=== PATIENT | male | born 1945 | race African-American/Black ===

== ENCOUNTER 2018-08-24 11:25 | Outpatient (CLI) | payer MEDICARE, BC ==
--- NOTE | 2018-08-24 12:38 | RAD ---
2 views right hip. HISTORY: Right hip pain. AP and frog leg views right hip obtained. No evidence of acute fractures, subluxations or bony lesion seen. IMPRESSION: Unremarkable 2 views right hip.
--- NOTE | 2018-08-24 12:39 | RAD ---
2 views right knee. HISTORY: Bilateral knee osteoarthritis and pain. AP and lateral views right knee obtained. Vascular calcifications seen in the popliteal artery. No evidence of right knee fractures, subluxations or bony lesions seen. IMPRESSION: Unremarkable 2 views right knee.
--- NOTE | 2018-08-24 12:52 | RAD ---
Left knee 2 views: HISTORY: Bilateral primary osteoarthritis of knee FINDINGS: Mild degenerative changes are present. No fracture dislocation or bony destruction is ident ified.
== END 2018-08-24 11:26 | disposition home or self-care (01) ==
LOC: BICRAD 11:25
PROVIDERS: ATTEND Internal Medicine Rheumatology
DX: M17.0 Bilateral primary osteoarthritis of knee (principal); M25.551 Pain in right hip

== ENCOUNTER 2018-09-01 14:05 | Outpatient (CLI) | payer MEDICARE, BC ==
--- NOTE | 2018-09-01 14:24 | RAD ---
EXAM: Right shoulder 3 views: HISTORY: Right shoulder pain COMPARISON: None FINDINGS: Degenerative changes. No acute fracture or dislocation or other significant acute osseous abnormality. IMPRESSION: No significant acute process.
== END 2018-09-01 14:06 | disposition home or self-care (01) ==
LOC: BICRAD 14:05
PROVIDERS: ATTEND Internal Medicine Rheumatology
DX: M25.511 Pain in right shoulder (principal)

== ENCOUNTER 2020-01-19 15:23 | Observation (INO) | payer MEDICARE, BC, OTHER ==
[2020-01-19 16:26] LABS: #Eosinphils 0.1 thou/uL (0.0-0.7); #Lymphocytes 1.6 thou/uL (1.20-3.40); #Neutrophils 4.6 thou/uL (1.40-6.50); %Basophils 0.2 % (0.0-1.0); %Eosinophils 1.6 % (0.0-10.0); %Lymphocytes 21.7 % (21.0-51.0); %Monocytes 13.6 % (0.0-10.0); %Neutrophils 62.9 % (42.0-75.0); Hemoglobin 15.1 g/dL (14.0-18.0); Mean Corpuscular HGB CONC 32.7 g/dL (32.0-36.0); Mean Corpuscular Hemoglobin 33.4 pg (27.0-31.0); Mean Platelet Volume 8.5 fL (7.4-10.4); Platelet Count 134 thou/uL (130-400); RBC Distribution Width 12.3 % (11.5-14.5); Red Blood Cell (RBC) Count 4.53 mill/uL (4.70-6.10); White Blood Cell (WBC) Count 7.3 thou/uL (4.8-10.8)
--- NOTE | 2020-01-19 16:34 | RAD ---
Portable frontal chest radiograph: 01/19/2020 COMPARISON: 06/16/2010 HISTORY: Shortness of breath, altered mental status, low blood pressure FINDINGS: There is atherosclerotic obscuration of the aortic arch. Incompletely imaged cervical spine fusion hardware present. There is mild prominence of the tortuous descending thoracic aorta. No lobar consolidation or alveolar edema. Mild increased linear density noted in the left lung base which may signify volume loss or minimal in filtrate. IMPRESSION: Mild linear density in the left base. No focal consolidation or alveolar edema.
[2020-01-19 16:49] LABS: ALT (SGPT) 12 U/L (8-55); AST (SGOT) 14 U/L (5-34); Albumin 3.7 g/dL (3.4-4.8); Alkaline Phosphatase 66 U/L (40-110); Anion Gap 15 mmol/L (10-20); BUN (Urea Nitrogen) 15 mg/dL (8.4-25.7); Bilirubin, Total 0.6 mg/dL (0.2-1.2); CK (CPK) 114 U/L (30-200); Calc. Creatinine Clearance 0 mL/min (70-130); Calcium 8.7 mg/dL (7.8-10.44); Carbon Dioxide 21 mmol/L (23-31); Chloride 109 mmol/L (98-107); Estimated GFR-MDRD 54; Globulin 2.4 g/dL (2.4-3.5); Glucose 129 mg/dL (83-110); Magnesium 2.2 mg/dL (1.6-2.6); Protein, Total 6.1 g/dL (5.8-8.1); Sodium 141 mmol/L (136-145)
[2020-01-19 17:48] LABS: Bilirubin Negative (Negative); Blood, Urine Negative (Negative); Clarity Clear (Clear); Glucose, Urine (Dipstick) Normal (Negative); Ketone, Urine Negative (Negative); Leukocyte 25 Leu/uL (Negative); Nitrite Negative (Negative); Protein, Urine (Dipstick) 10 mg/dL (Neg-Trace); RBC/HPF 0-3 HPF (0-3); Specific Gravity, Urine 1.011 (1.002-1.036); Squamous Epithelial 0-3 HPF (0-3); Urobilinogen Normal mg/dL (Less than 2)
[2020-01-19 17:54] LABS: Bacteria/HPF 1+ HPF (None Seen)
[2020-01-19] MEDS ORDERED: cefTRIAXone\\ROCEPHIN 1 GM VIAL ONE (18:09)
[2020-01-19] MEDS ORDERED: Vancomycin 1 GM/200 ML BAG ONE (18:54)
--- NOTE | 2020-01-19 20:04 | CT ---
CT OF THE BRAIN WITHOUT CONTRAST: 01/19/20 HISTORY: Hypertension and altered mental status. COMPARISON: 06/18/10. TECHNIQUE: Multiple contiguous axial images were obtained in a CT of the brain without contrast. FINDINGS: Mild bifrontal atrophy is seen. There is no evidence of hydrocephalus, intracranial hemorrhage or ext ra-axial fluid collections. No large confluent infarction is seen. The calvarium and overlying soft tissues are unremarkable. The visualized paranasal sinuses and masto id air cells are well aerated. IMPRESSION: No evidence of acute intracranial abnormality. POS: EAA
[2020-01-19] MEDS ORDERED: Acetaminophen 325 MG TAB PO PRN (20:33)
[2020-01-19] MEDS ORDERED: Sodium Chloride 0.9% 1,000 ML IV SCH (20:45)
[2020-01-19 21:28] LABS: Troponin I Less than 0.010 ng/mL (< 0.028)
--- NOTE | 2020-01-19 21:43 | PDOC.EVN ---
Event Note - Event Note Event Note: [id number] HP
[2020-01-19 23:19] VITALS: BMI 25.0
[2020-01-20 00:18] LABS: Troponin I Less than 0.010 ng/mL (< 0.028)
--- NOTE | 2020-01-20 00:33 | HP ---
CHIEF COMPLAINT: Near syncopal episode. HISTORY OF PRESENT ILLNESS: Mr. Hargrove is a 74-year-old male with past medical history of hypertension, arthritis, who was brought to the emergency room by EMS due to low blood pressure and after a near syncopal episode. The patient was sitting on the couch and started to get really sweaty, generalized weakness, and tunnel vision. He told his , who called the EMS. Upon arrival, blood pressure was 58/20. The patient was given 1700 mL of fluids. The patient denies loss of consciousness, fall, chest pain, shortness of breath, or headache. He denies diarrhea. The patient stated that he was walking outside and with limited amount of fluid intake, he felt dehydrated. He notes that it was very hot and he started to get really tired and went outside to eat and sit down. He drank only a limited amount of water today. Workup in the emergency room, the patient appeared dehydrated, the patient was found to be in acute kidney injury with elevated creatinine. He had also ? UTI. The patient is being admitted to the hospital for further management. PAST MEDICAL HISTORY: 1. Hypertension. 2. Hyperlipidemia. 3. Arthritis. PAST SURGICAL HISTORY: Reviewed and not pertinent. FAMILY HISTORY: Reviewed and noncontributory. SOCIAL HISTORY: The patient drinks a glass of vodka a day. He currently uses tobacco. ALLERGIES: NO KNOWN ALLERGIES. HOME MEDICATIONS: Please see home medication reconciliation form for updated medications. REVIEW OF SYSTEMS: Review of 14 systems negative, except what is mentioned in history of present illness. PHYSICAL EXAMINATION: VITAL SIGNS: Blood pressure 105/64, respiratory rate is 18, temperature is 97.9, oxygen saturation 99% on room air, pulse is 60. HEAD AND NECK: Normocephalic, atraumatic. Neck is supple. Mucous membranes dry. CHEST: Fair bilateral air entry. ABDOMEN: Soft, nontender. Bowel sounds present. HEART: S1, S2. Regular. ABDOMEN: Soft, nontender. Bowel sounds present. NEUROLOGIC: Awake, alert, oriented x3. No focal deficits. PSYCH: Unable to assess. EXTREMITIES: No clubbing, no cyanosis. LABORATORY DATA: WBC 7.3, hemoglobin 15.1, platelets 134. Chemistry; sodium 141, potassium 4.0, BUN is 16, creatinine 1.52, glucose 129. Lactic acid 1.9. Troponin 0.013. Chest x-ray: Mild linear density, no definite consolidation or edema. CT of brain: No acute finding. ASSESSMENT: 1. Near syncope. 2. Hypotension, resolved. 3. Dehydration. 4. Acute kidney injury. 5. Hyperlipidemia. 6. History of hypertension. 7. Urinary tract infection? PLAN: 1. Admit. 2. Telemetry monitoring. 3. Orthostatic vital signs. 4. IV fluids. 5. Serial troponins. 6. Continue with antibiotic for now. 7. Reconcile home medications. 8. DVT prophylaxis as appropriate. 9. Expected length of stay, 1 midnight if patient stable and shows significant clinical improvement. Job ID: [id number]
[2020-01-20 05:11] LABS: #Eosinphils 0.2 thou/uL (0.0-0.7); #Lymphocytes 1.8 thou/uL (1.20-3.40); #Monocytes 0.7 thou/uL (0.11-0.59); #Neutrophils 4.7 thou/uL (1.40-6.50); %Basophils 0.5 % (0.0-1.0); %Eosinophils 3.1 % (0.0-10.0); %Lymphocytes 24.2 % (21.0-51.0); %Monocytes 9.9 % (0.0-10.0); %Neutrophils 62.2 % (42.0-75.0); Hemoglobin 14.6 g/dL (14.0-18.0); Mean Corpuscular Hemoglobin 34.8 pg (27.0-31.0); Mean Platelet Volume 8.4 fL (7.4-10.4); Platelet Count 145 thou/uL (130-400); RBC Distribution Width 12.3 % (11.5-14.5); Red Blood Cell (RBC) Count 4.18 mill/uL (4.70-6.10); White Blood Cell (WBC) Count 7.5 thou/uL (4.8-10.8)
[2020-01-20 05:43] LABS: Anion Gap 13 mmol/L (10-20); BUN (Urea Nitrogen) 12 mg/dL (8.4-25.7); Calc. Creatinine Clearance 53 mL/min (70-130); Calcium 8.7 mg/dL (7.8-10.44); Carbon Dioxide 23 mmol/L (23-31); Chloride 110 mmol/L (98-107); Estimated GFR-MDRD 73; Glucose 93 mg/dL (83-110); Potassium 3.9 mmol/L (3.5-5.1); Sodium 142 mmol/L (136-145)
[2020-01-20] MEDS ORDERED: Enoxaparin Sodium 30 MG/0.3 ML SYRINGE SC SCH (09:00)
[2020-01-20] MEDS ORDERED: Polyethylene Glycol 3350 17 GM Packet PO PRN (10:35)
[2020-01-20 11:02] LABS: SARS-CoV-2 MS2 Positive; SARS-CoV-2 N Gene Negative; SARS-CoV-2 S Gene Negative; SARS-CoV-2 by NAA Not Detected (NotDetected); SARS-CoV-2 orf1ab Negative
[2020-01-20] MEDS ORDERED: Senokot S 8.6-50 MG TAB PO SCH ×2 (11:15→21:00)
[2020-01-20 12:17] VITALS: BP 114/61; TEMP 97.9
[2020-01-20] MEDS ORDERED: cefTRIAXone\\ROCEPHIN 1 GM in Sodium Chloride 0.9% 100 ML IVPB SCH (20:00)
--- NOTE | 2020-01-21 02:13 | DIS ---
DATE OF ADMISSION: 01/19/2020 DATE OF DISCHARGE: 01/20/2020 DISCHARGE DIAGNOSES: 1. Hypotension, likely due to volume depletion, improved. 2. Dehydration. 3. Near syncope, secondary to #1 and #2. 4. Acute renal failure, improved. 5. Urinary tract infection, suspected. CONSULTATIONS: None. PERTINENT LABORATORY AND X-RAY FINDINGS: Creatinine ranged between 1.17 to 1.52. Estimated GFR ranged between 54 to 73. Lactic acid level 1.9. LFTs within normal limits. Magnesium level 2.2. Troponin I negative x3. BNP 11. CBC showed an MCV of 102. Blood cultures x2 dated 01/19/2020 showed no growth to date. Portable chest x-ray dated 01/19/2020 showed no acute cardiopulmonary process. CT of the brain dated 01/19/2020 showed no acute intracranial process. HOSPITAL COURSE: The patient was observed on the telemetry unit after initially presenting status post near syncopal episode. The patient with dehydration and acute kidney injury, likely due to volume depletion and poor oral intake. The patient was initially treated with IV fluids and monitored for clinical response. The patient was also treated for mild urinary tract infection with IV Rocephin and overall remained clinically stable. I have examined the patient at the time of discharge and discussed followup instructions. The patient was encouraged to increase free water intake at home and hold lisinopril for approximately 24 hours. The patient verbalized understanding and agreement, ready for discharge on 01/20/2020. DISCHARGE MEDICATIONS: 1. Lisinopril 20 mg one tablet p.o. daily, hold until 01/21/2020. 2. Atenolol 50 mg p.o. daily. 3. MiraLAX 17 g p.o. daily. 4. Gabapentin 600 mg p.o. daily. 5. Macrobid 100 mg p.o. b.i.d. x3 days. 6. Viagra 100 mg p.o. daily p.r.n. FOLLOWUP: The patient may follow up with Dr. Harinder Linares. CONDITION ON DISCHARGE: Stable. ACTIVITY: Ad fei. DIET: Heart healthy. CODE STATUS: Full. DISPOSITION: To home, 01/20/2020. Job ID: [id number]
[2020-01-21] MEDS ORDERED: Gabapentin 300 MG CAP PO SCH (09:00)
[2020-01-21] MEDS ORDERED: Non-Formulary Item 1 EACH (Gabapentin [Neurontin] 600 MG Tablet) PO SCH (09:00)
== END 2020-01-20 14:40 | disposition home or self-care (01) ==
LOC: ERS 15:23 → 2SE 18:59
PROVIDERS: ADMIT Internal Medicine; ATTEND Internal Medicine
DX: I95.9 Hypotension, unspecified (principal); E86.0 Dehydration; N17.9 Acute kidney failure, unspecified; E78.5 Hyperlipidemia, unspecified; I10 Essential (primary) hypertension; M19.90 Unspecified osteoarthritis, unspecified site; F17.200 Nicotine dependence, unspecified, uncomplicated; Z79.899 Other long term (current) drug therapy; Z20.828 Contact with and (suspected) exposure to other viral communicable diseases
CPT/HCPCS: 70450; 71045; 80048; 80053; 82550; 83605; 83735; 83880; 84484 ×2; 85025 ×2; 87040; 87086; 93005; 94760; 96365; 96367; 99285; U0003; 36415; 81003; 81015; 87635; 96361; 96372; G0378; J0696; J1650; J3370

== ENCOUNTER 2020-09-02 13:38 | Inpatient (IN) | payer MEDICARE, BC ==
[~2020-09-02 13:38] MED LIST: Iopamidol-370 76% 500 ML 1 ML ONE
[2020-09-02 14:04] LABS: #Eosinphils 0.2 thou/uL (0.0-0.7); #Lymphocytes 2.5 thou/uL (1.20-3.40); #Neutrophils 4.2 thou/uL (1.40-6.50); %Basophils 0.2 % (0.0-1.0); %Lymphocytes 31.6 % (21.0-51.0); %Monocytes 12.9 % (0.0-10.0); %Neutrophils 53.3 % (42.0-75.0); Hemoglobin 13.9 g/dL (14.0-18.0); Mean Corpuscular HGB CONC 33.4 g/dL (32.0-36.0); Mean Corpuscular Hemoglobin 34.3 pg (27.0-31.0); Mean Platelet Volume 8.5 fL (7.4-10.4); Platelet Count 157 thou/uL (130-400); RBC Distribution Width 12.4 % (11.5-14.5); Red Blood Cell (RBC) Count 4.06 mill/uL (4.70-6.10); White Blood Cell (WBC) Count 7.8 thou/uL (4.8-10.8)
[2020-09-02 14:25] LABS: ALT (SGPT) 13 U/L (8-55); AST (SGOT) 14 U/L (5-34); Acetaminophen Less than 6.0 mcg/mL (10.0-30.0); Albumin 3.7 g/dL (3.4-4.8); Alcohol Less than 10 mg/dL (Less than 10); Alkaline Phosphatase 53 U/L (40-110); Anion Gap 15 mmol/L (10-20); BUN (Urea Nitrogen) 13 mg/dL (8.4-25.7); Bilirubin, Total 0.7 mg/dL (0.2-1.2); CK (CPK) 65 U/L (30-200); Calc. Creatinine Clearance 0 mL/min (70-130); Calcium 9.6 mg/dL (7.8-10.44); Carbon Dioxide 23 mmol/L (23-31); Chloride 105 mmol/L (98-107); Globulin 2.6 g/dL (2.4-3.5); Glucose 110 mg/dL (83-110); Lipase 30 U/L (8-78); Potassium 4.5 mmol/L (3.5-5.1); Protein, Total 6.3 g/dL (5.8-8.1); Salicylate Less than 8.0 mg/dL (15.0-30.0); Sodium 138 mmol/L (136-145)
[2020-09-02] MEDS ORDERED: levETIRAcetam 500 MG/100 ML PREMIX BAG ONE (15:49)
[2020-09-02 17:24] LABS: Lactic Acid 3.2 mmol/L (0.5-2.2)
[2020-09-02] MEDS ORDERED: Senokot S 8.6-50 MG TAB PO PRN (17:25)
[2020-09-02] MEDS ORDERED: Acetaminophen 325 MG TAB PO PRN (17:25)
[2020-09-02] MEDS ORDERED: Sodium Chloride 0.9% 1,000 ML IV SCH (17:30)
[2020-09-02 17:36] VITALS: BMI 25.7
[2020-09-02] MEDS ORDERED: Lorazepam 2 MG/ML VIAL SLOW IVP PRN (17:40)
[2020-09-02 18:07] LABS: Free T4 (Free Thyroxine) 0.85 ng/dL (0.70-1.48)
[2020-09-02 18:47] LABS: Bilirubin Negative (Negative); Blood, Urine Negative (Negative); Clarity Clear (Clear); Glucose, Urine (Dipstick) Negative (Negative); Ketone, Urine Negative (Negative); Leukocyte Negative (Negative); Nitrite Negative (Negative); Protein, Urine (Dipstick) Negative (Neg-Trace); Urobilinogen 0.2 mg/dL (Less than 2)
[2020-09-02 18:48] LABS: Specific Gravity, Urine 1.031 (1.002-1.036)
[2020-09-02 18:49] LABS: Bacteria/HPF None Seen HPF (None Seen); RBC/HPF 0-3 HPF (0-3); Squamous Epithelial 0-3 HPF (0-3); WBC/HPF 0-3 HPF (0-3)
[2020-09-02] MEDS: Famotidine 20 MG TAB PO SCH (20:43)
[2020-09-02] MEDS: Nicotine 14 MG PATCH TD SCH (20:43)
[2020-09-03 05:11] LABS: #Eosinphils 0.4 thou/uL (0.0-0.7); #Lymphocytes 2.2 thou/uL (1.20-3.40); #Monocytes 1.1 thou/uL (0.11-0.59); %Basophils 0.6 % (0.0-1.0); %Eosinophils 4.9 % (0.0-10.0); %Lymphocytes 28.2 % (21.0-51.0); %Monocytes 13.9 % (0.0-10.0); %Neutrophils 52.3 % (42.0-75.0); Hemoglobin 14.4 g/dL (14.0-18.0); Mean Corpuscular HGB CONC 33.3 g/dL (32.0-36.0); Mean Corpuscular Hemoglobin 34.7 pg (27.0-31.0); Mean Platelet Volume 8.8 fL (7.4-10.4); Platelet Count 153 thou/uL (130-400); RBC Distribution Width 12.4 % (11.5-14.5); Red Blood Cell (RBC) Count 4.15 mill/uL (4.70-6.10); White Blood Cell (WBC) Count 7.6 thou/uL (4.8-10.8)
[2020-09-03 05:33] LABS: Lactic Acid 1.7 mmol/L (0.5-2.2)
[2020-09-03 05:38] LABS: ALT (SGPT) 13 U/L (8-55); AST (SGOT) 13 U/L (5-34); Albumin 3.6 g/dL (3.4-4.8); Alkaline Phosphatase 52 U/L (40-110); Anion Gap 11 mmol/L (10-20); BUN (Urea Nitrogen) 14 mg/dL (8.4-25.7); Bilirubin, Total 0.5 mg/dL (0.2-1.2); Calc. Creatinine Clearance 56 mL/min (70-130); Calcium 9.4 mg/dL (7.8-10.44); Carbon Dioxide 25 mmol/L (23-31); Cardiac Risk 3.4 (Less than 4.5); Chloride 110 mmol/L (98-107); Cholesterol 132 mg/dl (< 200 Desired); Globulin 2.6 g/dL (2.4-3.5); Glucose 93 mg/dL (83-110); HDL Cholesterol 39 mg/dL (>60 Neg Risk); LDL Cholesterol, Calculated 74 mg/dL; Magnesium 2.1 mg/dL (1.6-2.6); Potassium 4.8 mmol/L (3.5-5.1); Protein, Total 6.2 g/dL (5.8-8.1); Sodium 141 mmol/L (136-145); Triglycerides 95 mg/dL (Less than 150)
[2020-09-03] MEDS: Gabapentin 300 MG CAP PO SCH (08:33)
[2020-09-03] MEDS: Clopidogrel Bisulfate 75 MG TAB PO SCH (08:33)
[2020-09-03] MEDS: Famotidine 20 MG TAB PO SCH ×2 (08:33→21:19)
[2020-09-03] MEDS: Aspirin 81 mg Enteric Coated Tablet PO SCH (08:33)
[2020-09-03] MEDS: Enoxaparin Sodium 40 MG/0.4 ML SYRINGE SC SCH (08:34)
[2020-09-03] MEDS ORDERED: Lisinopril 20 MG TAB PO SCH (09:00)
[2020-09-03] MEDS: Nicotine 14 MG PATCH TD SCH (20:00)
[2020-09-03] MEDS: levETIRAcetam 500 MG TAB PO SCH (21:19)
[2020-09-04] MEDS ORDERED: Atorvastatin Calcium 10 MG TAB PO SCH (09:00)
[2020-09-04] MEDS: Famotidine 20 MG TAB PO SCH (09:27)
[2020-09-04] MEDS: Clopidogrel Bisulfate 75 MG TAB PO SCH (09:27)
[2020-09-04] MEDS: Aspirin 81 mg Enteric Coated Tablet PO SCH (09:29)
[2020-09-04] MEDS: levETIRAcetam 500 MG TAB PO SCH (09:29)
[2020-09-04] MEDS: Enoxaparin Sodium 40 MG/0.4 ML SYRINGE SC SCH (09:29)
[2020-09-04] MEDS: Gabapentin 300 MG CAP PO SCH (09:31)
[2020-09-04 11:50] VITALS: BP 133/64; TEMP 97.5
== END 2020-09-04 14:48 | disposition home or self-care (01) | DRG 101 ==
LOC: ERS 13:38 → 2SE 15:25
PROVIDERS: ADMIT Internal Medicine; ATTEND Family Medicine
DX: R56.9 Unspecified convulsions (principal); N17.9 Acute kidney failure, unspecified; E78.5 Hyperlipidemia, unspecified; I10 Essential (primary) hypertension; G89.29 Other chronic pain; M13.88 Other specified arthritis, other site; F17.210 Nicotine dependence, cigarettes, uncomplicated; Z79.899 Other long term (current) drug therapy; Z79.82 Long term (current) use of aspirin; Z79.02 Long term (current) use of antithrombotics/antiplatelets; Z95.828 Presence of other vascular implants and grafts
CPT/HCPCS: 36415; 70450; 70551; 71045; 71275; 80053; 80061; 80307; 81001; 82550; 82607; 82746; 83605; 83690; 83735; 83880; 84146; 84439; 84443; 84481; 84484; 85025; 85379; 87040; 87149; 93005; 93306; 93880; 95712; 95819; 95957; J1650; J1953; Q9967